=== PATIENT | female | born 1995 | race Caucasian/White ===

== ENCOUNTER 2020-08-04 16:49 | Emergency (ER) | payer MEDICAID, OTHER ==
[~2020-08-04] VITALS: Ht 149.9 cm; Wt 52.0 kg
[2020-08-04 17:21] VITALS: BP 109/64
[2020-08-04] MEDS ORDERED: NAPROXEN 500 MG TABLET PO STA (18:05)
[2020-08-04] MEDS ORDERED: CYCLOBENZAPRINE 10 MG TABLET. PO ONE (18:15)
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
[2020-08-04] MEDS ORDERED: NAPR-514 PO (20:30)
[2020-08-04] MEDS ORDERED: CYCL10TA2 PO (20:30)
== END 2020-08-04 20:45 | disposition home or self-care (01) ==
LOC: ER 16:49
DX: M54.2 Cervicalgia (principal); M54.5 Low back pain; R07.81 Pleurodynia; G89.11 Acute pain due to trauma; R51.9 Headache, unspecified; R11.2 Nausea with vomiting, unspecified; E03.9 Hypothyroidism, unspecified; V49.49XA Driver injured in collision with other motor vehicles in traffic accident, initial encounter; Y92.488 Other paved roadways as the place of occurrence of the external cause; Y93.89 Activity, other specified; Y99.8 Other external cause status
CPT/HCPCS: 70450; 71101; 72125; 72131; 99285-25